=== PATIENT | female | born 1975 | race Caucasian/White ===

== ENCOUNTER 2017-09-15 03:13 | Inpatient (IN) | payer MEDICAID, OTHER ==
[2017-09-15 03:13] VITALS: BMI 57.4
--- NOTE | 2017-09-15 03:23 | C.PDOC ---
History Of Present Illness patient presents with about 3 hours of sudden onset of midepigastric and ruq pain, had nausea and 2 episodes of emesis. No f/c. Last had some meatballs with rice around 5 pm for dinner. No diarrhea Time Seen by Provider: 09/15/17 03:23 History Per: Patient History/Exam Limitations: no limitations Onset/Duration Of Symptoms: Hrs (3) Current Symptoms Are (Timing): Still Present Context: Other Severity: Moderate Pain Scale Rating Of: 4 Location Of Pain/Discomfort: RUQ, Epigastric Radiation Of Pain To:: Back Quality Of Discomfort: Sharp, Cramping Associated Symptoms: Nausea, Vomiting. denies: Fever, Chills Exacerbating Factors: None Alleviating Factors: None Last Bowel Movement: Yesterday Recent travel outside of the [place]: No Additional History Per: Patient Abnormal Vaginal Bleeding: No Past Medical History Reviewed: Historical Data, Nursing Documentation, Vital Signs Vital Signs: Last Vital Signs Temp 98.6 F 09/15/17 03:23 Pulse 66 09/15/17 03:23 Resp 18 09/15/17 03:23 BP 123/74 09/15/17 03:23 Pulse Ox 99 09/15/17 05:06 - Medical History PMH: Denies: Chronic Kidney Disease Family History: States: No Known Family Hx - Social History Hx Tobacco Use: Yes (3 cigarrettes per day) Hx Alcohol Use: No Hx Substance Use: No - Immunization History Hx Tetanus Toxoid Vaccination: No Hx Influenza Vaccination: Yes Hx Pneumococcal Vaccination: Yes Review Of Systems Constitutional: Negative for: Fever, Chills ENT: Negative for: Throat Pain Cardiovascular: Negative for: Chest Pain Respiratory: Negative for: Shortness of Breath Gastrointestinal: Positive for: Nausea, Vomiting, Abdominal Pain Musculoskeletal: Positive for: Back Pain Skin: Negative for: Rash Neurological: Negative for: Weakness Psych: Negative for: Anxiety Physical Exam - Physical Exam Appears: Non-toxic, No Acute Distress Skin: Warm, Dry Oral Mucosa: Moist Neck: Supple Chest: Symmetrical Cardiovascular: Rhythm Regular Respiratory: No Rales, No Rhonchi, No Wheezing Gastrointestinal/Abdominal: Soft, Tenderness (midepigastric and ruq), Distention (morbidly obese) Back: Normal Inspection Neurological/Psych: Oriented x3 Gait: Steady ED Course And Treatment - Laboratory Results Result Diagrams: 09/15/17 04:06 09/15/17 04:06 O2 Sat by Pulse Oximetry: 99 Pulse Ox Interpretation: Normal Disposition Counseled Patient/Family Regarding: Studies Performed, Diagnosis - Disposition Disposition Time: 03:23 Condition: FAIR - Clinical Impression Clinical Impression: Abdominal pain, Nausea, Vomiting, Gallstone Physician Patient Turnover Patient Signed Over To: Felix Ga Handoff Comments: pending labs, US and dispo
[2017-09-15] MEDS ORDERED: Sodium Chloride 0.9% 1,000 ML IV ONE (03:38)
[2017-09-15 04:09] LABS: EOS # 0.1 K/uL (0.0-0.7); EOS % 0.6 % (0.0-4.0); MONO # 0.4 K/uL (0.0-0.8)
[2017-09-15 04:13] LABS: BASO % 0.4 % (0.0-2.0); HEMOGLOBIN 8.8 g/dL (11.0-16.0); MEAN CELL VOLUME 61.5 fL (81.0-99.0); MEAN CORPUSCULAR HEMOGLOBIN 18.5 pg (27.0-31.0); MEAN CORPUSCULAR HGB CONC 30.1 g/dL (33.0-37.0); MEAN PLATELET VOLUME 7.3 fL (7.2-11.7); MONO % 3.6 % (0.0-10.0); NEUT # 7.7 K/uL (1.8-7.0); NEUT % 75.4 % (50.0-75.0); NRBC % 0.2 % (0.0-2.0); RBC 4.75 Mil/uL (3.80-5.20); RED CELL DISTRIBUTION WIDTH 19.4 % (11.5-14.5); WHITE BLOOD COUNT 10.2 K/uL (4.8-10.8)
[2017-09-15 04:15] LABS: PROTHROMBIN TIME 11.2 SECONDS (9.7-12.2)
[2017-09-15 04:20] LABS: ALB/GLOB RATIO 1.3 (1.0-2.1); ALT/SGPT 26 U/L (9-52); AST/SGOT 13 U/L (14-36); BLOOD UREA NITROGEN 13 mg/dL (7-17); CALCIUM 9.7 mg/dl (8.6-10.4); GFR AFRICAN-AMERICAN > 60; GFR NON-AFRICAN AMERICAN > 60; LIPASE 154 U/L (23-300)
[2017-09-15 04:31] LABS: SQUAMOUS EPITHIAL 11 /hpf (0-5); URINE BILIRUBIN NEGATIVE (NEGATIVE); URINE BLOOD NEGATIVE (NEGATIVE); URINE CLARITY Hazy (Clear); URINE COLOR Yellow (YELLOW); URINE GLUCOSE (UA) NORMAL (Normal); URINE LEUKOCYTE ESTERASE 1+ Leu/uL (Negative); URINE PROTEIN NEGATIVE (NEGATIVE); URINE UROBILINOGEN NORMAL mg/dL (0.2-1.0)
[2017-09-15 04:32] LABS: HCG,QUALITATIVE URINE NEGATIVE (NEGATIVE)
[2017-09-15] MEDS ORDERED: Piperacillin/Tazobact 3.375 gm 100 ML IVPB STA (04:32)
[2017-09-15] MEDS ORDERED: Morphine 4 MG/ML VIAL IV ONE (05:06)
[2017-09-15] MEDS ORDERED: Morphine 4 MG/ML VIAL ONE (05:10)
[2017-09-15] MEDS ORDERED: Iodixanol 320 MG/ML 100 ML BOTTLE IV ONE (05:20)
--- NOTE | 2017-09-15 07:32 | CT ---
Date of service: 09/15/2017 PROCEDURE: CT Abdomen and Pelvis with contrast HISTORY: mid epigastric pain COMPARISON: Comparison is made with the previous ultrasound of the abdomen dated 09/19/2015 TECHNIQUE: Contrast dose: 100 mL Visipaque 320. Axial and reformatted coronal and sagittal CT images of the abdomen and pelvis were obtained after IV contrast administration Radiation dose: Total exam DLP = 1228.84 mGy-cm. This CT exam was performed using one or more of the following dose reduction techniques: Automated exposure control, adjustment of the mA and/or kV according to patient size, and/or use of iterative reconstruction technique. FINDINGS: LOWER THORAX: Unremarkable. LIVER: Unremarkable. No gross lesion or ductal dilatation. GALLBLADDER AND BILE DUCTS: Cholelithiasis are noted without evidence of acute cholecystitis. PANCREAS: Unremarkable. No gross lesion or ductal dilatation. SPLEEN: Unremarkable. ADRENALS: Unremarkable. No mass. KIDNEYS AND URETERS: Unremarkable. No hydronephrosis. No solid mass. VASCULATURE: Unremarkable. No aortic aneurysm. BOWEL: Unremarkable. No obstruction. No gross mural thickening. . APPENDIX: There is no evidence of appendicitis PERITONEUM: Unremarkable. No free fluid. No free air. LYMPH NODES: Unremarkable. No enlarged lymph nodes. BLADDER: Unremarkable. REPRODUCTIVE: The uterus is mildly enlarged. There is soft tissue lesion at the left aspect of the uterine body and fundus likely represent large fibroid. Prominent follicles is also noted in the left adnexa. BONES: No acute fracture. OTHER FINDINGS: None. IMPRESSION: Cholelithiasis without CT evidence of acute cholecystitis. No evidence of pancreatitis or appendicitis. Enlarged uterus contains soft tissue enhancing lesion likely represent large fibroid. Preliminary report was submitted by [facility].
--- NOTE | 2017-09-15 09:30 | US ---
Date of service: 09/15/2017 HISTORY: uterine fibroid/mass COMPARISON: None available. TECHNIQUE: Transabdominal and transvaginal FINDINGS: UTERUS: Measures 15.4 x 10.3 x 10.4 cm. Anterior intramural/ subserosal uterine fibroid, 7.5 x 7.7 x 7.5 cm. ENDOMETRIUM: Measures 17 mm in diameter. Unremarkable. CERVIX: No cervical abnormality identified. RIGHT OVARY: Measures 3.8 x 2.0 x 3.9 cm. No solid mass. Normal flow. LEFT OVARY: Measures 4.5 x 3.6 x 4.8 cm. No solid mass. Normal flow. Simple cyst, 2.5 x 2.7 x 2.9 cm. FREE FLUID: No significant free fluid noted. OTHER FINDINGS: None. IMPRESSION: 2.9 cm simple left ovarian cyst, presumed physiologic. 7.7 cm anterior intramural/ subserosal uterine fibroid. No additional abnormality.
[2017-09-15 10:12] VITALS: RESP 20
[2017-09-15] MEDS ORDERED: Morphine 4 MG/ML VIAL IV PRN (11:57)
--- NOTE | 2017-09-15 13:46 | US ---
Date of service: 09/15/2017 HISTORY: gallstones COMPARISON: Correlations made to CT scan of the abdomen pelvis performed earlier the same day. TECHNIQUE: Sonographic evaluation of the right upper quadrant of the abdomen. FINDINGS: LIVER: Enlarged, measuring 18.2 cm in length. Increased echogenicity of the liver parenchyma. No mass. No intrahepatic bile duct dilatation. GALLBLADDER: Cholelithiasis with gallbladder wall thickening/edema. No pericholecystic fluid or elicited sonographic Moreno's sign. COMMON BILE DUCT: Mildly dilated, measuring 7 mm. PANCREAS: Limited evaluation. RIGHT KIDNEY: Measures 13.4 x 5.5 x 5.7 cm in length. Normal echogenicity. No calculus, mass, or hydronephrosis. AORTA: No aneurysmal dilatation. IVC: Unremarkable. OTHER FINDINGS: None . IMPRESSION: Hepatomegaly with steatosis. Cholelithiasis with nonspecific gallbladder wall thickening/ edema. Findings are equivocal for acute cholecystitis. Mildly dilated common bile duct for which choledocholithiasis cannot be excluded. MRCP can be obtained for further evaluation of the biliary ductal system as clinically warranted.
[2017-09-15] MEDS: Lactated Ringer's 1,000 ML IV SCH ×3 (14:12→21:00)
--- NOTE | 2017-09-15 15:23 | CP.PCM.HP ---
<Chelsea Mcclendon - Last Filed: 09/15/17 16:24> History of Present Illness - History of Present Illness History of Present Illness: cc: abdominal pain Ms. Mamie Cowart is a 42 year old female PMH anemia complaining of abdominal pain since last night. The sharp epigastric pain woke her from sleep. She thought it was a reoccurance of her GERD and laid in bed for another two hours while the pain increased from a 7 to 10/10. It radiates from the mid-epigastric region, around her right side, terminating at the right flank. The pain is constant and has not changed since being admitted. She admits to nausea, with two episodes of non bloody, non bilious vomiting prior to coming to [place]. She also admits to one episode of light diarrhea, yellow and water. She has been on a new diet for the last two months, consisting of and Herbalife shake in the morning, and a larger lunch at 4-5pm, skipping dinner. She has lost 10lbs in the last two months and hopes to continue losing weight. Admits to fatigue and continued nausea. Denies chest pain, difficulty breathing, shortness of breath, headaches, dizziness, lightheadedness, blurry vision, double vision, sweating, sore throat, palpitation, flushing, heat or cold intolerance, dysuria, recent travel, sick contacts, recent sickness, change in appetite. PMH: Fe def anemia PSxH: 2004 Home Meds: black seed oil Allergies: NKDA FamHx: unknown PSH: 3 cig/day smoker since age 15. Social alcohol drinker on weekends, 2 cocktails. Denies drugs. Lives with and two children in apartment. 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 Full Code Caleb Ga [phone] Present on Admission - Present on Admission Any Indicators Present on Admission: No Review of Systems - Constitutional Constitutional: Fatigue, Weight Loss. absent: Anorexia, Chills, Excessive Sweating, Fever, Headache, Increased Appetite, Malaise, Night Sweats, Weight Gain - EENT Eyes: absent: Blind Spots, Blurred Vision, Diplopia, Dry Eye Ears: absent: Decreased Hearing, Tinnitus, Dizziness Nose/Mouth/Throat: absent: Dry Mouth, Dysphagia, Halitosis, Hoarsness, Odynophagia, Sore Throat - Cardiovascular Cardiovascular: absent: Chest Pain, Chest Pain at Rest, Chest Pain with Activity , Dyspnea, Pain Radiating to Arm/Neck/Jaw, Leg Edema, Lightheadedness, Palpitations, Rapid Heart Rate - Respiratory Respiratory: absent: Cough, Dyspnea, Dyspnea on Exertion, Wheezing, Chest Congestion - Gastrointestinal Gastrointestinal: Abdominal Pain, Diarrhea, Heartburn, Nausea, Vomiting. absent : Belching, Bloating, Change in Stool Character, Constipation, Dysphagia, Fecal Incontinence, Odynophagia - Genitourinary Genitourinary: absent: Difficulty Urinating, Dysuria, Hematuria, Urinary Incontinence, Urinary Frequency - Musculoskeletal Musculoskeletal: absent: Abnormal Gait, Back Pain - Neurological Neurological: absent: Abnormal Gait, Syncope, Tremor, Vertigo - Psychiatric Psychiatric: absent: Confusion, Depression - Endocrine Endocrine: absent: Cold Intolorance, Excessive Sweating, Heat Intolorance, Palpitations - Hematologic/Lymphatic Hematologic: absent: Easy Bleeding, Easy Bruising Past Patient History - Past Medical History & Family History Past Medical History?: Yes - Past Social History Smoking Status: Current Some Days Smoker Alcohol: Social Drugs: Denies - CARDIAC Hx Cardiac Disorders: No - PULMONARY Hx Respiratory Disorders: Yes Other/Comment: SLEEP APNEA NO MACHINE - NEUROLOGICAL Hx Neurological Disorder: No - HEENT Hx HEENT Problems: No - RENAL Hx Chronic Kidney Disease: No - ENDOCRINE/METABOLIC Hx Endocrine Disorders: No - HEMATOLOGICAL/ONCOLOGICAL Hx Blood Disorders: Yes Hx Anemia: Yes Hx Blood Transfusions: Yes - INTEGUMENTARY Hx Dermatological Problems: No - MUSCULOSKELETAL/RHEUMATOLOGICAL Hx Falls: No - GASTROINTESTINAL Hx Gastrointestinal Disorders: No - GENITOURINARY/GYNECOLOGICAL Hx Genitourinary Disorders: No - PSYCHIATRIC Hx Psychophysiologic Disorder: No Hx Substance Use: No - SURGICAL HISTORY Hx Surgeries: Yes Hx Section: Yes - ANESTHESIA Hx Anesthesia: Yes Hx Anesthesia Reactions: No Meds Allergies/Adverse Reactions: Allergies Allergy/AdvReac Type Severity Reaction Status Date / Time No Known Allergies Allergy Verified 09/15/17 03:29 Physical Exam - Constitutional Appears: Non-toxic, No Acute Distress - Head Exam Head Exam: ATRAUMATIC, NORMOCEPHALIC - Eye Exam Eye Exam: EOMI, Normal appearance, PERRL. absent: Periorbital tenderness Additional comments: glasses - ENT Exam ENT Exam: Mucous Membranes Moist, Normal Exam - Respiratory Exam Respiratory Exam: Clear to Auscultation Bilateral, NORMAL BREATHING PATTERN. absent: Rales, Rhonchi, Wheezes - Cardiovascular Exam Cardiovascular Exam: REGULAR RHYTHM, +S1, +S2. absent: Gallop, Rubs, Systolic Murmur - GI/Abdominal Exam GI & Abdominal Exam: Normal Bowel Sounds, Soft, Tenderness. absent: Distended, Firm, Guarding, Rebound, Rigid Additional comments: obese tenderness to deep palpation midepigastric area through right side, around to the back. - Extremities Exam Extremities exam: Positive for: normal capillary refill, pedal pulses present. Negative for: joint swelling, pedal edema, tenderness Additional comments: IV in right arm, good flow - Back Exam Back exam: NORMAL INSPECTION - Neurological Exam Neurological exam: Alert, CN II-XII Intact, Normal Gait, Oriented x3, Reflexes Normal - Psychiatric Exam Psychiatric exam: Normal Affect, Normal Mood - Skin Skin Exam: Dry, Intact, Normal Color, Warm Results - Vital Signs Recent Vital Signs: Last Vital Signs Temp 98.6 F 09/15/17 10:11 Pulse 69 09/15/17 10:11 Resp 20 09/15/17 10:11 BP 102/66 09/15/17 10:11 Pulse Ox 97 09/15/17 10:11 - Labs Result Diagrams: 09/15/17 04:06 09/15/17 04:06 Labs: Laboratory Results - last 24 hr 09/15/17 09/15/17 09/15/17 04:06 04:06 04:06 WBC 10.2 RBC 4.75 Hgb 8.8 L Hct 29.2 L MCV 61.5 L D MCH 18.5 L MCHC 30.1 L RDW 19.4 H Plt Count 407 H MPV 7.3 Neut % (Auto) 75.4 H Lymph % (Auto) 20.0 [place] % (Auto) 3.6 Eos % (Auto) 0.6 Baso % (Auto) 0.4 Neut # (Auto) 7.7 H Lymph # (Auto) 2.0 [place] # (Auto) 0.4 Eos # (Auto) 0.1 Baso # (Auto) 0.0 PT 11.2 INR 1.0 APTT 32 Sodium 144 Potassium 4.5 Chloride 104 Carbon Dioxide 28 Anion Gap 16 BUN 13 Creatinine 0.7 Est GFR ( Amer) > 60 Est GFR (Non-Af Amer) > 60 Random Glucose 135 H Calcium 9.7 Total Bilirubin 0.4 AST 13 L ALT 26 Alkaline Phosphatase 88 Total Protein 7.2 Albumin 4.0 Globulin 3.2 Albumin/Globulin Ratio 1.3 Lipase 154 Urine Color Urine Clarity Urine pH Ur Specific Industry Urine Protein Urine Glucose (UA) Urine Ketones Urine Blood Urine Nitrate Urine Bilirubin Urine Urobilinogen Ur Leukocyte Esterase Urine WBC (Auto) Urine RBC (Auto) Ur Squamous Epith Cells Urine HCG, Qual Blood Type Antibody Screen 09/15/17 09/15/17 04:18 14:14 WBC RBC Hgb Hct MCV MCH MCHC RDW Plt Count MPV Neut % (Auto) Lymph % (Auto) [place] % (Auto) Eos % (Auto) Baso % (Auto) Neut # (Auto) Lymph # (Auto) [place] # (Auto) Eos # (Auto) Baso # (Auto) PT INR APTT Sodium Potassium Chloride Carbon Dioxide Anion Gap BUN Creatinine Est GFR ( Amer) Est GFR (Non-Af Amer) Random Glucose Calcium Total Bilirubin AST ALT Alkaline Phosphatase Total Protein Albumin Globulin Albumin/Globulin Ratio Lipase Urine Color Yellow Urine Clarity Hazy Urine pH 5.0 Ur Specific Industry 1.025 Urine Protein Negative Urine Glucose (UA) Normal Urine Ketones Negative Urine Blood Negative Urine Nitrate Negative Urine Bilirubin Negative Urine Urobilinogen Normal Ur Leukocyte Esterase 1+ H Urine WBC (Auto) 25 H Urine RBC (Auto) 2 Ur Squamous Epith Cells 11 H Urine HCG, Qual Negative Blood Type B POSITIVE Antibody Screen Negative Assessment & Plan (1) Abdominal pain Assessment and Plan: Cholelithiasis vs. Choledocholithiasis vs. Cholecystitis Abdominal/Pelvic CT (09/15) Cholelithiasis without evidence of acute cholecystitis. No evidence of pancreatitis or appendicitis Abdominal US (09/15) Cholelithiasis with non specific gallbladder wall thickening /edema - equivocal for acute cholecystitis. Mildly dilated CBD which choledocholithiasis cannot be excluded. Bowel rest, currently NPO IVF: LR @ 150mls/hr Tylenol and Morphine PRN for pain Repeat lipase: f/u Surgery consulted: Dr. Baird - help appreciated Status: Acute (2) Uterine fibroid Assessment and Plan: Abdominal/Pelvic CT (09/15) Enlarged uterus contains soft tissue enhancing lesion , likely large fibroid Transabdominal and Transvaginal US (09/15) 7.7cm anterior intramural/subserosal uterine fibroid. 2.9cm simple left ovarian cyst Patient is asymptomatic, may follow up outpatient Status: Chronic (3) History of iron deficiency anemia Assessment and Plan: H&H today 8.8, 29.2 patient is asymptomatic, trend with morning labs Status: Chronic (4) Tobacco abuse Assessment and Plan: Encouraged on smoking cessation Nicotine patch TD daily Status: Acute (5) Prophylactic measure Assessment and Plan: DVT: Lovenox 40mg sc daily GI: not indicated Diet: currently NPO, may start heart healthy if no surgery Status: Acute <Az Pearce H - Last Filed: 09/15/17 18:10> Results - Vital Signs Recent Vital Signs: Last Vital Signs Temp 98.2 F 09/15/17 15:15 Pulse 74 09/15/17 15:15 Resp 20 09/15/17 15:15 BP 101/62 09/15/17 15:15 Pulse Ox 97 09/15/17 15:15 - Labs Result Diagrams: 09/15/17 04:06 09/15/17 04:06 Labs: Laboratory Results - last 24 hr 09/15/17 09/15/17 09/15/17 04:06 04:06 04:06 WBC 10.2 RBC 4.75 Hgb 8.8 L Hct 29.2 L MCV 61.5 L D MCH 18.5 L MCHC 30.1 L RDW 19.4 H Plt Count 407 H MPV 7.3 Neut % (Auto) 75.4 H Lymph % (Auto) 20.0 [place] % (Auto) 3.6 Eos % (Auto) 0.6 Baso % (Auto) 0.4 Neut # (Auto) 7.7 H Lymph # (Auto) 2.0 [place] # (Auto) 0.4 Eos # (Auto) 0.1 Baso # (Auto) 0.0 PT 11.2 INR 1.0 APTT 32 Sodium 144 Potassium 4.5 Chloride 104 Carbon Dioxide 28 Anion Gap 16 BUN 13 Creatinine 0.7 Est GFR ( Amer) > 60 Est GFR (Non-Af Amer) > 60 Random Glucose 135 H Calcium 9.7 Total Bilirubin 0.4 AST 13 L ALT 26 Alkaline Phosphatase 88 Total Protein 7.2 Albumin 4.0 Globulin 3.2 Albumin/Globulin Ratio 1.3 Lipase 154 Urine Color Urine Clarity Urine pH Ur Specific Industry Urine Protein Urine Glucose (UA) Urine Ketones Urine Blood Urine Nitrate Urine Bilirubin Urine Urobilinogen Ur Leukocyte Esterase Urine WBC (Auto) Urine RBC (Auto) Ur Squamous Epith Cells Urine HCG, Qual Blood Type Blood Type Confirm Antibody Screen 09/15/17 09/15/17 04:18 14:14 WBC RBC Hgb Hct MCV MCH MCHC RDW Plt Count MPV Neut % (Auto) Lymph % (Auto) [place] % (Auto) Eos % (Auto) Baso % (Auto) Neut # (Auto) Lymph # (Auto) [place] # (Auto) Eos # (Auto) Baso # (Auto) PT INR APTT Sodium Potassium Chloride Carbon Dioxide Anion Gap BUN Creatinine Est GFR ( Amer) Est GFR (Non-Af Amer) Random Glucose Calcium Total Bilirubin AST ALT Alkaline Phosphatase Total Protein Albumin Globulin Albumin/Globulin Ratio Lipase Urine Color Yellow Urine Clarity Hazy Urine pH 5.0 Ur Specific Industry 1.025 Urine Protein Negative Urine Glucose (UA) Normal Urine Ketones Negative Urine Blood Negative Urine Nitrate Negative Urine Bilirubin Negative Urine Urobilinogen Normal Ur Leukocyte Esterase 1+ H Urine WBC (Auto) 25 H Urine RBC (Auto) 2 Ur Squamous Epith Cells 11 H Urine HCG, Qual Negative Blood Type B POSITIVE Blood Type Confirm B POSITIVE Antibody Screen Negative Attending/Attestation - Attestation I have personally seen and examined this patient.: Yes I have fully participated in the care of the patient.: Yes I have reviewed all pertinent clinical information: Yes Notes (Text): 09/15/17 18:10 Medical attending: Patient was seen and examined by me, I saw the patient together with the director medical economics. Reviewed the above note and agree with the above. When we saw the patient she was not in any acute distress. Family members were present in the room, the patient was okay with this. She has had a CT scan of the abdomen and pelvis done which showed that she appears to have at least gallstones. We ordered an additional ultrasound abdomen just assess for common bile duct dilatation. This being said her Liverman enzymes as well as lipase and T bilirubin are currently stable at this moment. That she has had right upper quadrant pain before in the past however not this severe For the time being will keep her nothing by mouth, we will get a surgical evaluation. Also recheck her LFTs as well as lipase tomorrow low dose pain medications well thank you very much, Az Pearce
--- NOTE | 2017-09-16 00:49 | CP.PCM.CON ---
<Deandre Cota - Last Filed: 09/16/17 09:10> History of Present Illness - History of Present Illness History of Present Illness: 42 y/o f patient presents for right upper quadrant and epigastric pain that began the previous night. She describes the pain as sharp in quality and radiating to her back. Patient comments that nothing makes the pain better or worse. Upon questioning patient denied fatigue, weakness, dizziness, chest pain , tachycardia, dyspnea, coughing, wheezing, sputum production, dysuria, pyuria, hematuria. Patient comments that she did experience nausea, vomiting, diarrhea but has not had a BM or flatus since the previous day. PMH: N/A PSH: (2003) FH: N/A Allergies NKDA Medicationa: N/A Review of Systems - Review of Systems Review of Systems: 12 pt ROS unremarkable except as stated in HPI - Constitutional Constitutional: As Per HPI Past Patient History - Past Medical History & Family History Past Medical History?: Yes - Past Social History Smoking Status: Current Some Days Smoker Alcohol: Social Drugs: Denies - CARDIAC Hx Cardiac Disorders: No - PULMONARY Hx Respiratory Disorders: Yes Other/Comment: SLEEP APNEA NO MACHINE - NEUROLOGICAL Hx Neurological Disorder: No - HEENT Hx HEENT Problems: No - RENAL Hx Chronic Kidney Disease: No - ENDOCRINE/METABOLIC Hx Endocrine Disorders: No - HEMATOLOGICAL/ONCOLOGICAL Hx Blood Disorders: Yes Hx Anemia: Yes Hx Blood Transfusions: Yes - INTEGUMENTARY Hx Dermatological Problems: No - MUSCULOSKELETAL/RHEUMATOLOGICAL Hx Falls: No - GASTROINTESTINAL Hx Gastrointestinal Disorders: No - GENITOURINARY/GYNECOLOGICAL Hx Genitourinary Disorders: No - PSYCHIATRIC Hx Psychophysiologic Disorder: No Hx Substance Use: No - SURGICAL HISTORY Hx Surgeries: Yes Hx Section: Yes - ANESTHESIA Hx Anesthesia: Yes Hx Anesthesia Reactions: No Meds Allergies/Adverse Reactions: Allergies Allergy/AdvReac Type Severity Reaction Status Date / Time No Known Allergies Allergy Verified 09/15/17 03:29 - Medications Medications: Current Medications Acetaminophen (Tylenol 325mg Tab) 650 mg PO Q6 PRN PRN Reason: Pain, Mild (1-3) Lactated Ringer's (Lactated Ringer's) 1,000 mls @ 150 mls/hr IV .[facility]6H40M [facility] Last Admin: 09/15/17 21:00 Dose: 150 mls/hr Morphine Sulfate (Morphine) 4 mg IV Q6 PRN PRN Reason: Pain, moderate (4-7) Nicotine (Nicoderm Cq) 1 patch TD DAILY [facility] Last Admin: 09/15/17 14:12 Dose: 1 patch Physical Exam - Constitutional Appears: Well - Head Exam Head Exam: ATRAUMATIC - Respiratory Exam Respiratory Exam: NORMAL BREATHING PATTERN - GI/Abdominal Exam GI & Abdominal Exam: Soft, Tenderness Additional comments: + RUQ tenderness, mild - Neurological Exam Neurological exam: Alert, Oriented x3 - Psychiatric Exam Psychiatric exam: Normal Mood - Skin Skin Exam: Dry, Intact, Warm Results - Vital Signs Recent Vital Signs: Last Vital Signs Temp 97.9 F 09/16/17 00:31 Pulse 68 09/16/17 00:31 Resp 20 09/16/17 00:31 BP 115/75 09/16/17 00:31 Pulse Ox 100 09/16/17 00:31 - Labs Result Diagrams: 09/16/17 06:14 09/16/17 06:14 Labs: Laboratory Results - last 24 hr 09/15/17 09/15/17 09/15/17 04:06 04:06 04:06 WBC 10.2 RBC 4.75 Hgb 8.8 L Hct 29.2 L MCV 61.5 L D MCH 18.5 L MCHC 30.1 L RDW 19.4 H Plt Count 407 H MPV 7.3 Neut % (Auto) 75.4 H Lymph % (Auto) 20.0 [place] % (Auto) 3.6 Eos % (Auto) 0.6 Baso % (Auto) 0.4 Neut # (Auto) 7.7 H Lymph # (Auto) 2.0 [place] # (Auto) 0.4 Eos # (Auto) 0.1 Baso # (Auto) 0.0 PT 11.2 INR 1.0 APTT 32 Sodium 144 Potassium 4.5 Chloride 104 Carbon Dioxide 28 Anion Gap 16 BUN 13 Creatinine 0.7 Est GFR ( Amer) > 60 Est GFR (Non-Af Amer) > 60 Random Glucose 135 H Calcium 9.7 Total Bilirubin 0.4 AST 13 L ALT 26 Alkaline Phosphatase 88 Total Protein 7.2 Albumin 4.0 Globulin 3.2 Albumin/Globulin Ratio 1.3 Lipase 154 Urine Color Urine Clarity Urine pH Ur Specific [place] Urine Protein Urine Glucose (UA) Urine Ketones Urine Blood Urine Nitrate Urine Bilirubin Urine Urobilinogen Ur Leukocyte Esterase Urine WBC (Auto) Urine RBC (Auto) Ur Squamous Epith Cells Urine HCG, Qual Blood Type Blood Type Confirm Antibody Screen 09/15/17 09/15/17 04:18 14:14 WBC RBC Hgb Hct MCV MCH MCHC RDW Plt Count MPV Neut % (Auto) Lymph % (Auto) [place] % (Auto) Eos % (Auto) Baso % (Auto) Neut # (Auto) Lymph # (Auto) [place] # (Auto) Eos # (Auto) Baso # (Auto) PT INR APTT Sodium Potassium Chloride Carbon Dioxide Anion Gap BUN Creatinine Est GFR ( Amer) Est GFR (Non-Af Amer) Random Glucose Calcium Total Bilirubin AST ALT Alkaline Phosphatase Total Protein Albumin Globulin Albumin/Globulin Ratio Lipase Urine Color Yellow Urine Clarity Hazy Urine pH 5.0 Ur Specific [place] 1.025 Urine Protein Negative Urine Glucose (UA) Normal Urine Ketones Negative Urine Blood Negative Urine Nitrate Negative Urine Bilirubin Negative Urine Urobilinogen Normal Ur Leukocyte Esterase 1+ H Urine WBC (Auto) 25 H Urine RBC (Auto) 2 Ur Squamous Epith Cells 11 H Urine HCG, Qual Negative Blood Type B POSITIVE Blood Type Confirm B POSITIVE Antibody Screen Negative Assessment & Plan - Assessment and Plan (Free Text) Assessment: 42 y/o F patient with symptomatic cholelithiasis Plan: Patient may follow up as outpatient for laparoscopic/robotic cholecystectomy Adv diet as tolerated IVF Analgesics/antiemetics SCDs D/w Dr. Brie Bermudez PGY3 <Giancarlo Baird - Last Filed: 09/16/17 14:54> Results - Vital Signs Recent Vital Signs: Last Vital Signs Temp 98.5 F 09/16/17 08:00 Pulse 69 09/16/17 08:00 Resp 20 09/16/17 08:00 BP 141/81 09/16/17 08:00 Pulse Ox 98 09/16/17 08:00 - Labs Result Diagrams: 09/16/17 06:14 09/16/17 06:14 Labs: Laboratory Results - last 24 hr 09/15/17 09/16/17 09/16/17 14:14 06:14 06:14 WBC 7.7 RBC 4.41 Hgb 8.1 L Hct 27.2 L MCV 61.7 L MCH 18.3 L MCHC 29.7 L RDW 19.1 H Plt Count 346 MPV 7.1 L Neut % (Auto) 58.6 Lymph % (Auto) 35.8 [place] % (Auto) 3.9 Eos % (Auto) 1.1 Baso % (Auto) 0.6 Neut # (Auto) 4.5 Lymph # (Auto) 2.8 [place] # (Auto) 0.3 Eos # (Auto) 0.1 Baso # (Auto) 0.0 Sodium Potassium Chloride Carbon Dioxide Anion Gap BUN Creatinine Est GFR ( Amer) Est GFR (Non-Af Amer) Random Glucose Hemoglobin A1c 5.7 Calcium Phosphorus Magnesium Total Bilirubin AST ALT Alkaline Phosphatase Total Protein Albumin Globulin Albumin/Globulin Ratio Lipase Blood Type B POSITIVE Blood Type Confirm B POSITIVE Antibody Screen Negative 09/16/17 06:14 WBC RBC Hgb Hct MCV MCH MCHC RDW Plt Count MPV Neut % (Auto) Lymph % (Auto) [place] % (Auto) Eos % (Auto) Baso % (Auto) Neut # (Auto) Lymph # (Auto) [place] # (Auto) Eos # (Auto) Baso # (Auto) Sodium 140 Potassium 3.7 Chloride 105 Carbon Dioxide 27 Anion Gap 12 BUN 7 Creatinine 0.7 Est GFR ( Amer) > 60 Est GFR (Non-Af Amer) > 60 Random Glucose 82 Hemoglobin A1c Calcium 8.6 Phosphorus 3.9 Magnesium 1.7 Total Bilirubin 0.3 AST 18 ALT 24 Alkaline Phosphatase 87 Total Protein 6.2 L Albumin 3.3 L Globulin 2.9 Albumin/Globulin Ratio 1.2 Lipase 188 Blood Type Blood Type Confirm Antibody Screen Attending/Attestation - Attestation I have personally seen and examined this patient.: Yes I have fully participated in the care of the patient.: Yes I have reviewed all pertinent clinical information: Yes Notes (Text): Pt was seen and examined at bedside Agree with above note and assessment Pt with upper abdominal pain and nausea Abdomen: Soft, mild tender. Non distended Labs and radiology reviewed Ass: Cholelithiasis with Morbid Obesity Plan: Conservative management for now IV antibiotics If pt improves, pt can be DC home Plan d.w pt in detail Risk and benefit explained in detail.
[2017-09-16] MEDS: Lactated Ringer's 1,000 ML IV SCH ×2 (03:27→08:50)
[2017-09-16 06:20] LABS: BASO % 0.6 % (0.0-2.0); EOS # 0.1 K/uL (0.0-0.7); EOS % 1.1 % (0.0-4.0); HEMOGLOBIN 8.1 g/dL (11.0-16.0); LYMPH # 2.8 K/uL (1.0-4.3); LYMPH % 35.8 % (20.0-40.0); MEAN CELL VOLUME 61.7 fL (81.0-99.0); MEAN CORPUSCULAR HEMOGLOBIN 18.3 pg (27.0-31.0); MEAN CORPUSCULAR HGB CONC 29.7 g/dL (33.0-37.0); MEAN PLATELET VOLUME 7.1 fL (7.2-11.7); MONO # 0.3 K/uL (0.0-0.8); MONO % 3.9 % (0.0-10.0); NEUT # 4.5 K/uL (1.8-7.0); NEUT % 58.6 % (50.0-75.0); NRBC % 0.1 % (0.0-2.0); RBC 4.41 Mil/uL (3.80-5.20); RED CELL DISTRIBUTION WIDTH 19.1 % (11.5-14.5); WHITE BLOOD COUNT 7.7 K/uL (4.8-10.8)
--- NOTE | 2017-09-16 06:24 | CP.PCM.PN ---
Subjective - Date & Time of Evaluation Date of Evaluation: 09/16/17 Objective - Vital Signs/Intake and Output Vital Signs (last 24 hours): Temp Pulse Resp BP Pulse Ox 97.9 F 68 20 115/75 100 09/16/17 00:31 09/16/17 00:31 09/16/17 00:31 09/16/17 00:31 09/16/17 00:31 Intake and Output: 09/15/17 09/16/17 18:59 06:59 Intake Total 1200 Balance 1200 - Medications Medications: Current Medications Acetaminophen (Tylenol 325mg Tab) 650 mg PO Q6 PRN PRN Reason: Pain, Mild (1-3) Lactated Ringer's (Lactated Ringer's) 1,000 mls @ 150 mls/hr IV .Q6H40M [facility] Last Admin: 09/16/17 03:27 Dose: 150 mls/hr Morphine Sulfate (Morphine) 4 mg IV Q6 PRN PRN Reason: Pain, moderate (4-7) Nicotine (Nicoderm Cq) 1 patch TD DAILY [facility] Last Admin: 09/15/17 14:12 Dose: 1 patch - Labs Labs: 09/15/17 04:06 09/15/17 04:06 PT 11.2 SECONDS (9.7-12.2) 09/15/17 04:06 INR 1.0 09/15/17 04:06 APTT 32 SECONDS (21-34) 09/15/17 04:06 Assessment and Plan (1) Abdominal pain Status: Acute (2) Uterine fibroid Status: Chronic (3) History of iron deficiency anemia Status: Chronic (4) Tobacco abuse Status: Acute (5) Prophylactic measure Status: Acute
[2017-09-16 08:08] LABS: ALB/GLOB RATIO 1.2 (1.0-2.1); ALBUMIN 3.3 g/dL (3.5-5.0); ALT/SGPT 24 U/L (9-52); AST/SGOT 18 U/L (14-36); BLOOD UREA NITROGEN 7 mg/dL (7-17); CALCIUM 8.6 mg/dl (8.6-10.4); GFR AFRICAN-AMERICAN > 60; GFR NON-AFRICAN AMERICAN > 60; LIPASE 188 U/L (23-300)
[2017-09-16 08:34] VITALS: BP 141/81; PULSE 69; TEMP 98.5; O2SAT 98
--- NOTE | 2017-09-16 09:42 | CP.PCM.PN ---
<Oneil Trejo - Last Filed: 09/16/17 09:43> Subjective - Date & Time of Evaluation Date of Evaluation: 09/16/17 Time of Evaluation: 09:41 - Subjective Subjective: Surgery: Dr. Baird Pt is clear for D/C from surgical standpoint Pt may follow up out pt for elective jo Low fat diet ok D/W attending Maya PGY4 Objective - Vital Signs/Intake and Output Vital Signs (last 24 hours): Temp Pulse Resp BP Pulse Ox 98.5 F 69 20 141/81 98 09/16/17 08:00 09/16/17 08:00 09/16/17 08:00 09/16/17 08:00 09/16/17 08:00 Intake and Output: 09/16/17 09/16/17 06:59 18:59 Intake Total 1200 Balance 1200 - Medications Medications: Current Medications Acetaminophen (Tylenol 325mg Tab) 650 mg PO Q6 PRN PRN Reason: Pain, Mild (1-3) Lactated Ringer's (Lactated Ringer's) 1,000 mls @ 150 mls/hr IV .Q6H40M [facility] Last Admin: 09/16/17 08:50 Dose: Not Given Morphine Sulfate (Morphine) 4 mg IV Q6 PRN PRN Reason: Pain, moderate (4-7) Nicotine (Nicoderm Cq) 1 patch TD DAILY [facility] Last Admin: 09/15/17 14:12 Dose: 1 patch - Labs Labs: 09/16/17 06:14 09/16/17 06:14 PT 11.2 SECONDS (9.7-12.2) 09/15/17 04:06 INR 1.0 09/15/17 04:06 APTT 32 SECONDS (21-34) 09/15/17 04:06 <Giancarlo Baird - Last Filed: 09/16/17 14:58> Objective - Vital Signs/Intake and Output Vital Signs (last 24 hours): Temp Pulse Resp BP Pulse Ox 98.5 F 69 20 141/81 98 09/16/17 08:00 09/16/17 08:00 09/16/17 08:00 09/16/17 08:00 09/16/17 08:00 Intake and Output: 09/16/17 09/16/17 06:59 18:59 Intake Total 1200 1550 Balance 1200 1550 - Labs Labs: 09/16/17 06:14 09/16/17 06:14 PT 11.2 SECONDS (9.7-12.2) 09/15/17 04:06 INR 1.0 09/15/17 04:06 APTT 32 SECONDS (21-34) 09/15/17 04:06 Attending/Attestation - Attestation I have personally seen and examined this patient.: Yes I have fully participated in the care of the patient.: Yes I have reviewed all pertinent clinical information, including history, physical exam and plan: Yes Notes (Text): Pt was seen and examined at bedside Agree with above note and assessment Pt is improved clinically Out pt lap Cholecystectomy Reg low fat diet c.w current mx Plan d.w pt in detail Risk and benefit explained in detail.
[2017-09-16] MEDS ORDERED: Enoxaparin 40 mg Syringe SC SCH (10:00)
--- NOTE | 2017-09-16 10:03 | CP.PCM.DIS ---
<Chelsea Mcclendon - Last Filed: 09/16/17 10:00> Provider - Provider Date of Admission: 09/15/17 07:35 Attending physician: Az Pearce DO Time Spent in preparation of Discharge (in minutes): 60 Diagnosis - Discharge Diagnosis (1) Abdominal pain Status: Acute (2) Uterine fibroid Status: Chronic (3) History of iron deficiency anemia Status: Chronic (4) Tobacco abuse Status: Acute (5) Prophylactic measure Status: Acute Hospital Course - Lab Results Lab Results: Most Recent Lab Values WBC 7.7 K/uL (4.8-10.8) 09/16/17 06:14 RBC 4.41 Mil/uL (3.80-5.20) 09/16/17 06:14 Hgb 8.1 g/dL (11.0-16.0) L 09/16/17 06:14 Hct 27.2 % (34.0-47.0) L 09/16/17 06:14 MCV 61.7 fL (81.0-99.0) L 09/16/17 06:14 MCH 18.3 pg (27.0-31.0) L 09/16/17 06:14 MCHC 29.7 g/dL (33.0-37.0) L 09/16/17 06:14 RDW 19.1 % (11.5-14.5) H 09/16/17 06:14 Plt Count 346 K/uL (130-400) 09/16/17 06:14 MPV 7.1 fL (7.2-11.7) L 09/16/17 06:14 Neut % (Auto) 58.6 % (50.0-75.0) 09/16/17 06:14 Lymph % (Auto) 35.8 % (20.0-40.0) 09/16/17 06:14 [place] % (Auto) 3.9 % (0.0-10.0) 09/16/17 06:14 Eos % (Auto) 1.1 % (0.0-4.0) 09/16/17 06:14 Baso % (Auto) 0.6 % (0.0-2.0) 09/16/17 06:14 Neut # (Auto) 4.5 K/uL (1.8-7.0) 09/16/17 06:14 Lymph # (Auto) 2.8 K/uL (1.0-4.3) 09/16/17 06:14 [place] # (Auto) 0.3 K/uL (0.0-0.8) 09/16/17 06:14 Eos # (Auto) 0.1 K/uL (0.0-0.7) 09/16/17 06:14 Baso # (Auto) 0.0 K/uL (0.0-0.2) 09/16/17 06:14 PT 11.2 SECONDS (9.7-12.2) 09/15/17 04:06 INR 1.0 09/15/17 04:06 APTT 32 SECONDS (21-34) 09/15/17 04:06 Sodium 140 mmol/L (132-148) 09/16/17 06:14 Potassium 3.7 mmol/L (3.6-5.2) 09/16/17 06:14 Chloride 105 mmol/L (98-107) 09/16/17 06:14 Carbon Dioxide 27 mmol/L (22-30) 09/16/17 06:14 Anion Gap 12 (10-20) 09/16/17 06:14 BUN 7 mg/dL (7-17) 09/16/17 06:14 Creatinine 0.7 mg/dL (0.7-1.2) 09/16/17 06:14 Est GFR ( Amer) > 60 09/16/17 06:14 Est GFR (Non-Af Amer) > 60 09/16/17 06:14 Random Glucose 82 mg/dL (65-105) 09/16/17 06:14 Hemoglobin A1c 5.7 % (4.2-6.5) 09/16/17 06:14 Calcium 8.6 mg/dl (8.6-10.4) 09/16/17 06:14 Phosphorus 3.9 mg/dL (2.5-4.5) 09/16/17 06:14 Magnesium 1.7 mg/dL (1.6-2.3) 09/16/17 06:14 Total Bilirubin 0.3 mg/dL (0.2-1.3) 09/16/17 06:14 AST 18 U/L (14-36) 09/16/17 06:14 ALT 24 U/L (9-52) 09/16/17 06:14 Alkaline Phosphatase 87 U/L (38-126) 09/16/17 06:14 Total Protein 6.2 g/dL (6.3-8.3) L 09/16/17 06:14 Albumin 3.3 g/dL (3.5-5.0) L 09/16/17 06:14 Globulin 2.9 gm/dL (2.2-3.9) 09/16/17 06:14 Albumin/Globulin Ratio 1.2 (1.0-2.1) 09/16/17 06:14 Lipase 188 U/L (23-300) 09/16/17 06:14 Urine Color Yellow (YELLOW) 09/15/17 04:18 Urine Clarity Hazy (Clear) 09/15/17 04:18 Urine pH 5.0 (5.0-8.0) 09/15/17 04:18 Ur Specific [place] 1.025 (1.003-1.030) 09/15/17 04:18 Urine Protein Negative mg/dL (NEGATIVE) 09/15/17 04:18 Urine Glucose (UA) Normal mg/dL (Normal) 09/15/17 04:18 Urine Ketones Negative mg/dL (NEGATIVE) 09/15/17 04:18 Urine Blood Negative (NEGATIVE) 09/15/17 04:18 Urine Nitrate Negative (NEGATIVE) 09/15/17 04:18 Urine Bilirubin Negative (NEGATIVE) 09/15/17 04:18 Urine Urobilinogen Normal mg/dL (0.2-1.0) 09/15/17 04:18 Ur Leukocyte Esterase 1+ [place]yll[place]/uL (Negative) H 09/15/17 04:18 Urine WBC (Auto) 25 /hpf (0-5) H 09/15/17 04:18 Urine RBC (Auto) 2 /hpf (0-3) 09/15/17 04:18 Ur Squamous Epith Cells 11 /hpf (0-5) H 09/15/17 04:18 Urine HCG, Qual Negative (NEGATIVE) 09/15/17 04:18 Blood Type B POSITIVE 09/15/17 14:14 Blood Type Confirm B POSITIVE 09/15/17 14:14 Antibody Screen Negative 09/15/17 14:14 - Hospital Course Hospital Course: Ms. Mamie Cowart is a 42 year old female PMH anemia complaining of abdominal pain since last night. The sharp epigastric pain woke her from sleep. She thought it was a reoccurance of her GERD and laid in bed for another two hours while the pain increased from a 7 to 10/10. It radiates from the mid-epigastric region, around her right side, terminating at the right flank. The pain is constant and has not changed since being admitted. She admits to nausea, with two episodes of non bloody, non bilious vomiting prior to coming to [place]. She also admits to one episode of light diarrhea, yellow and water. She has been on a new diet for the last two months, consisting of and Herbalife shake in the morning, and a larger lunch at 4-5pm, skipping dinner. She has lost 10lbs in the last two months and hopes to continue losing weight. Admits to fatigue and continued nausea. Denies chest pain, difficulty breathing, shortness of breath, headaches, dizziness, lightheadedness, blurry vision, double vision, sweating, sore throat, palpitation, flushing, heat or cold intolerance, dysuria, recent travel, sick contacts, recent sickness, change in appetite. CT Abdomen and Pelvis showed cholelithiasis without evidence of acute cholecystitis, enlarged uterus containing a soft tissue enhancing lesion. Transvaginal and transabdominal US confirmed 7.7cm anterior intramural/ subserosal uterine fibroid. It also showed a 2.9cm simple cyst on the left ovary. An abdominal US showed cholelithiasis with nonspecific gallbladder wall thickening/edema with equivocal results for choledocholithiasis. IVF and analgesics were given and the pain resolved. Labs showed no elevation in appropriate markers suggesting other etiologies or worsening of cholelithiasis. Primary Diagnosis: Cholelithiasis with biliary colic Patient is clear for discharge per Dr. Pearce. Patient had no home medications, and is not being discharged with any new medications. Please follow up with your PMD for your history of anemia. Please follow up with surgery for an elective cholecystectomy. A low fat diet is suggested, as well as exercise and weight loss, to decrease recurrence. Patient was also educated on smoking cessation. Plan was discussed with patient who understood and agreed. This is a summary of the hospital course. Please refer to the EMR for more details. - Date & Time of H&P Date of H&P: 09/16/17 Time of H&P: 10:01 Discharge Exam - Head Exam Head Exam: ATRAUMATIC, NORMOCEPHALIC - Eye Exam Eye Exam: EOMI, Normal appearance, PERRL - ENT Exam ENT Exam: Mucous Membranes Moist, Normal Exam - Respiratory Exam Respiratory Exam: Clear to PA & Lateral, UNREMARKABLE. absent: Rales, Rhonchi, Wheezes - Cardiovascular Exam Cardiovascular Exam: REGULAR RHYTHM, +S1, +S2. absent: Gallop, Rubs, Systolic Murmur - GI/Abdominal Exam GI & Abdominal Exam: Normal Bowel Sounds, Soft. absent: Firm, Guarding, Rebound , Tenderness Additional comments: obese - Extremities Exam Extremities exam: full ROM, normal capillary refill, pedal pulses present - Neurological Exam Neurological exam: Alert, CN II-XII Intact, Oriented x3, Reflexes Normal - Psychiatric Exam Psychiatric exam: Normal Affect, Normal Mood - Skin Skin Exam: Dry, Intact, Normal Color, Warm Discharge Plan - Follow Up Plan Disposition: HOME/ ROUTINE Instructions: Gallstones Additional Instructions: Patient is clear for discharge per Dr. Pearce. Patient had no home medications, and is not being discharged with any new medications. Please follow up with your PMD for your history of anemia. Please follow up with surgery for an elective cholecystectomy. A low fat diet is suggested, as well as exercise and weight loss, to decrease recurrence. Patient was also educated on smoking cessation. Plan was discussed with patient who understood and agreed. Referrals: Sheba Fink MD [Staff Provider] - <Az Pearce - Last Filed: 09/16/17 16:33> Provider - Provider Date of Admission: 09/15/17 07:35 Attending physician: Az Pearce, Hospital Course - Lab Results Lab Results: Most Recent Lab Values WBC 7.7 K/uL (4.8-10.8) 09/16/17 06:14 RBC 4.41 Mil/uL (3.80-5.20) 09/16/17 06:14 Hgb 8.1 g/dL (11.0-16.0) L 09/16/17 06:14 Hct 27.2 % (34.0-47.0) L 09/16/17 06:14 MCV 61.7 fL (81.0-99.0) L 09/16/17 06:14 MCH 18.3 pg (27.0-31.0) L 09/16/17 06:14 MCHC 29.7 g/dL (33.0-37.0) L 09/16/17 06:14 RDW 19.1 % (11.5-14.5) H 09/16/17 06:14 Plt Count 346 K/uL (130-400) 09/16/17 06:14 MPV 7.1 fL (7.2-11.7) L 09/16/17 06:14 Neut % (Auto) 58.6 % (50.0-75.0) 09/16/17 06:14 Lymph % (Auto) 35.8 % (20.0-40.0) 09/16/17 06:14 [place] % (Auto) 3.9 % (0.0-10.0) 09/16/17 06:14 Eos % (Auto) 1.1 % (0.0-4.0) 09/16/17 06:14 Baso % (Auto) 0.6 % (0.0-2.0) 09/16/17 06:14 Neut # (Auto) 4.5 K/uL (1.8-7.0) 09/16/17 06:14 Lymph # (Auto) 2.8 K/uL (1.0-4.3) 09/16/17 06:14 [place] # (Auto) 0.3 K/uL (0.0-0.8) 09/16/17 06:14 Eos # (Auto) 0.1 K/uL (0.0-0.7) 09/16/17 06:14 Baso # (Auto) 0.0 K/uL (0.0-0.2) 09/16/17 06:14 PT 11.2 SECONDS (9.7-12.2) 09/15/17 04:06 INR 1.0 09/15/17 04:06 APTT 32 SECONDS (21-34) 09/15/17 04:06 Sodium 140 mmol/L (132-148) 09/16/17 06:14 Potassium 3.7 mmol/L (3.6-5.2) 09/16/17 06:14 Chloride 105 mmol/L (98-107) 09/16/17 06:14 Carbon Dioxide 27 mmol/L (22-30) 09/16/17 06:14 Anion Gap 12 (10-20) 09/16/17 06:14 BUN 7 mg/dL (7-17) 09/16/17 06:14 Creatinine 0.7 mg/dL (0.7-1.2) 09/16/17 06:14 Est GFR ( Amer) > 60 09/16/17 06:14 Est GFR (Non-Af Amer) > 60 09/16/17 06:14 Random Glucose 82 mg/dL (65-105) 09/16/17 06:14 Hemoglobin A1c 5.7 % (4.2-6.5) 09/16/17 06:14 Calcium 8.6 mg/dl (8.6-10.4) 09/16/17 06:14 Phosphorus 3.9 mg/dL (2.5-4.5) 09/16/17 06:14 Magnesium 1.7 mg/dL (1.6-2.3) 09/16/17 06:14 Total Bilirubin 0.3 mg/dL (0.2-1.3) 09/16/17 06:14 AST 18 U/L (14-36) 09/16/17 06:14 ALT 24 U/L (9-52) 09/16/17 06:14 Alkaline Phosphatase 87 U/L (38-126) 09/16/17 06:14 Total Protein 6.2 g/dL (6.3-8.3) L 09/16/17 06:14 Albumin 3.3 g/dL (3.5-5.0) L 09/16/17 06:14 Globulin 2.9 gm/dL (2.2-3.9) 09/16/17 06:14 Albumin/Globulin Ratio 1.2 (1.0-2.1) 09/16/17 06:14 Lipase 188 U/L (23-300) 09/16/17 06:14 Urine Color Yellow (YELLOW) 09/15/17 04:18 Urine Clarity Hazy (Clear) 09/15/17 04:18 Urine pH 5.0 (5.0-8.0) 09/15/17 04:18 Ur Specific [place] 1.025 (1.003-1.030) 09/15/17 04:18 Urine Protein Negative mg/dL (NEGATIVE) 09/15/17 04:18 Urine Glucose (UA) Normal mg/dL (Normal) 09/15/17 04:18 Urine Ketones Negative mg/dL (NEGATIVE) 09/15/17 04:18 Urine Blood Negative (NEGATIVE) 09/15/17 04:18 Urine Nitrate Negative (NEGATIVE) 09/15/17 04:18 Urine Bilirubin Negative (NEGATIVE) 09/15/17 04:18 Urine Urobilinogen Normal mg/dL (0.2-1.0) 09/15/17 04:18 Ur Leukocyte Esterase 1+ [place]yll[place]/uL (Negative) H 09/15/17 04:18 Urine WBC (Auto) 25 /hpf (0-5) H 09/15/17 04:18 Urine RBC (Auto) 2 /hpf (0-3) 09/15/17 04:18 Ur Squamous Epith Cells 11 /hpf (0-5) H 09/15/17 04:18 Urine HCG, Qual Negative (NEGATIVE) 09/15/17 04:18 Blood Type B POSITIVE 09/15/17 14:14 Blood Type Confirm B POSITIVE 09/15/17 14:14 Antibody Screen Negative 09/15/17 14:14 Attending/Attestation - Attestation I have personally seen and examined this patient.: Yes I have fully participated in the care of the patient.: Yes I have reviewed all pertinent clinical information, including history, physical exam and plan: Yes Notes (Text): 09/16/17 16:31 Medical attending: Patient was seen and examined by me as well. Patient was seen and examined together with the medical radiation tech Patient was not in any acute pain or distress when we saw her. She reported doing well overnight The LFT remained stable overnight as well Will discharge today, we explained to her that should she have re-occuring problems with her gall bladder then in the future may need removal. Also encouraged diet, life style changes, etc thank you Az Pearce
== END 2017-09-16 14:12 | disposition home or self-care (01) | DRG 208 ==
LOC: C.ER 03:13 → C.3T 07:35
PROVIDERS: ADMIT Hospitalist; ATTEND Hospitalist
DX: K80.20 Calculus of gallbladder without cholecystitis without obstruction (principal); D25.2 Subserosal leiomyoma of uterus; D25.1 Intramural leiomyoma of uterus; N83.292 Other ovarian cyst, left side; K21.9 Gastro-esophageal reflux disease without esophagitis; F17.200 Nicotine dependence, unspecified, uncomplicated; E66.01 Morbid (severe) obesity due to excess calories; G47.30 Sleep apnea, unspecified; Z68.43 Body mass index [BMI] 50.0-59.9, adult; Z98.891 History of uterine scar from previous surgery

== ENCOUNTER 2017-10-14 14:14 | Inpatient (IN) | payer MEDICAID, OTHER ==
[2017-10-14 14:14] VITALS: BMI 57.4
[2017-10-14] MEDS ORDERED: Sodium Chloride 0.9% 1,000 ML IV ONE (14:55)
--- NOTE | 2017-10-14 14:59 | C.PDOC ---
History Of Present Illness 42 year old female patient presents to the ER with c/o RUQ abdominal pain. Associated sx includes nausea, vomiting and chills. Patient also c/o decreased appetite and no BM. Patient states her RUQ pain is so severe she is unable to eat or have a BM. Patient notes she was recently diagnosed with fever and diarrhea. Her LNMP was x1 month ago. Patient denies fever and diarrhea. Chief Complaint (Nursing): Back Pain History Per: Patient History/Exam Limitations: no limitations Past Medical History Reviewed: Historical Data, Nursing Documentation, Vital Signs Vital Signs: Last Vital Signs Temp 98.7 F 10/17/17 07:21 Pulse 76 10/17/17 07:21 Resp 20 10/17/17 07:21 BP 100/60 10/17/17 07:21 Pulse Ox 96 10/17/17 07:21 - Medical History PMH: Anemia, Gall Bladder Disease Family History: States: No Known Family Hx - Social History Hx Tobacco Use: Yes (3 cigarrettes per day) Hx Alcohol Use: Yes (social) Hx Substance Use: No - Immunization History Hx Tetanus Toxoid Vaccination: No Hx Influenza Vaccination: Yes Hx Pneumococcal Vaccination: Yes Review Of Systems Except As Marked, All Systems Reviewed And Found Negative. Constitutional: Positive for: Chills. Negative for: Fever Gastrointestinal: Positive for: Nausea, Vomiting, Abdominal Pain (RUQ). Negative for: Diarrhea Physical Exam - Physical Exam Appears: Non-toxic, No Acute Distress Skin: Normal Color, Warm, Dry Head: Atraumatic, Normacephalic Eye(s): bilateral: Normal Inspection Oral Mucosa: Moist Throat: Normal Neck: Normal ROM, Supple Chest: Symmetrical, No Deformity Cardiovascular: Rhythm Regular Respiratory: Normal Breath Sounds Gastrointestinal/Abdominal: Soft, Tenderness (RUQ) Back: CVA Tenderness Extremity: Normal ROM (x4) Neurological/Psych: Oriented x3, Normal Speech Gait: Steady ED Course And Treatment - Laboratory Results Result Diagrams: 10/17/17 08:04 10/17/17 08:04 O2 Sat by Pulse Oximetry: 100 (RA) Pulse Ox Interpretation: Normal - Other Rad CXR X-Ray: Read By Radiologist Interpretation: Accession No. : [id number]. Patient Name / ID : XAVIER ALARCON / [id number]. Exam Date : 10/14/2017 15:10:15 ( Approved ). Study Comment : Sex / Age : F / 42Y. Creator : Fabiola Perdomo. Dictator : Elbert Blake MD. Dance Master : Furnace Mechanic : Elbert Blake MD. Approver2 : Report Date : 10/14/2017 15:26:48. My Comment : . Chest x-ray single frontal view. History: Chest pain. Comparison: None available. Findings: Mild venous congestion. Mild right hilar prominence. Mild patchy increased markings at the left lung base. Tortuous aorta. Degenerative changes in the spine. Impression: Mild venous congestion. Mild right hilar prominence. Mild patchy increased markings at the left lung base. Tortuous aorta. - CT Scan/US US abdomen Other Rad Studies (CT/US): Read By Radiologist, Radiology Report Reviewed CT/US Interpretation: Accession No. : [id number]. Patient Name / ID : XAVIER ALARCON / [id number]. Exam Date : 10/14/2017 15:20:51 ( Approved ). Study Comment : Sex / Age : F / 42Y. Creator : Elbert Blake MD. Dictator : Elbert Blake MD. Dance Master : Furnace Mechanic : Elbert Blake MD. Approver2 : Report Date : 10/14/2017 16:09:03. My Comment : . Right upper quadrant abdominal ultrasound. History: Abdominal pain. Comparison: Ultrasound dated 09/15/2017. Technique: Real-time sonography was performed through the right upper quadrant of the abdomen. Findings: Liver: 18.7 centimeters in length. Increased echogenicity of the hepatic parenchymal cortex suggestive for fatty infiltration versus hepatic parenchymal disease. Clinical correlation. Gallbladder: Cholelithiasis. Calculi measure up to 1.7 centimeters. Associated sludge. Gallbladder wall thickening measuring up to 9.5 millimeters. Associated gallbladder wall edema. Positive sonographic [place] sign. Common bile duct measures 8.1 millimeters, prominent. Limited visualization of the pancreas. Visualized aorta and IVC are preserved. Right kidney: 14.6 x 5.9 x 6.0 centimeters. No calculi or hydronephrosis. Impression : Cholelithiasis and sludge in the gallbladder. Associated thickened and edematous gallbladder wall measuring up to 9.5 mm. Positive sonographic [place] sign. These findings would be concerning for acute cholecystitis in the appropriate clinical setting. Clinical correlation. Prominent liver measuring 18.7 centimeters in length. Increased echogenicity of the hepatic parenchymal cortex suggestive for fatty infiltration versus hepatic parenchymal disease. Clinical correlation. Prominent common bile duct measuring 8.1 mm. Clinical correlation. Limited visualization of the pancreas. - Physician Consult Information Time Consulting Physician Contacted: 16:56 Physician Contacted: Britt Adams Outcome Of Conversation: Discussed patient with Dr. Adams. Dr. Adams accepts patient to be admitted under her care. Patient will first go to surgical instrument maker to get work done. Medical Decision Making Medical Decision Making: Impression: RUQ abdominal pain. r/o gallbladder disease. Plans: -- blood work -- CXR -- Urine Cx -- UA -- US abdomen -- Pepcid -- IV fluids -- Toradol Reassess: Patient is resting comfortably. Tolerating PO. Patient remains stable. CXR is showing increase patchy infiltrate, patient has no signs of URI, no cough, no fever. Pneumonia is very unlikely. Patient will be admitted under Dr. Adams for further care and evaluation. Case was also discussed with surgical instrument maker to prepare patient for surgery. Disposition - Disposition Disposition: HOSPITALIZED Disposition Time: 17:00 Condition: GOOD - Clinical Impression Clinical Impression: Acute cholecystitis - Scribe Statement The provider has reviewed the documentation as recorded by the Conneribrosemary Peterson Do Provider Attestation: All medical record entries made by the Scribe were at my direction and personally dictated by me. I have reviewed the chart and agree that the record accurately reflects my personal performance of the history, physical exam, medical decision making, and the department course for this patient. I have also personally directed, reviewed, and agree with the discharge instructions and disposition.
--- NOTE | 2017-10-14 15:46 | RAD ---
Chest x-ray single frontal view History: Chest pain. Comparison: None available. Findings: Mild venous congestion. Mild right hilar prominence. Mild patchy increased markings at the left lung base. Tortuous aorta. Degenerative changes in the spine. Impression: Mild venous congestion. Mild right hilar prominence. Mild patchy increased markings at the left lung base. Tortuous aorta.
--- NOTE | 2017-10-14 16:11 | US ---
Right upper quadrant abdominal ultrasound History: Abdominal pain. Comparison: Ultrasound dated 09/15/2017 Technique: Real-time sonography was performed through the right upper quadrant of the abdomen. Findings: Liver: 18.7 centimeters in length. Increased echogenicity of the hepatic parenchymal cortex suggestive for fatty infiltration versus hepatic parenchymal disease. Clinical correlation. Gallbladder: Cholelithiasis. Calculi measure up to 1.7 centimeters. Associated sludge. Gallbladder wall thickening measuring up to 9.5 millimeters. Associated gallbladder wall edema. Positive sonographic [place] sign. Common bile duct measures 8.1 millimeters, prominent. Limited visualization of the pancreas. Visualized aorta and IVC are preserved. Right kidney: 14.6 x 5.9 x 6.0 centimeters. No calculi or hydronephrosis. Impression: Cholelithiasis and sludge in the gallbladder. Associated thickened and edematous gallbladder wall measuring up to 9.5 mm. Positive sonographic [place] sign. These findings would be concerning for acute cholecystitis in the appropriate clinical setting. Clinical correlation. Prominent liver measuring 18.7 centimeters in length. Increased echogenicity of the hepatic parenchymal cortex suggestive for fatty infiltration versus hepatic parenchymal disease. Clinical correlation. Prominent common bile duct measuring 8.1 mm. Clinical correlation. Limited visualization of the pancreas.
[2017-10-14 16:29] LABS: BASO # 0.1 K/uL (0.0-0.2); BASO % 0.4 % (0.0-2.0); EOS % 0.2 % (0.0-4.0); HEMOGLOBIN 8.5 g/dL (11.0-16.0); LYMPH # 2.6 K/uL (1.0-4.3); LYMPH % 14.2 % (20.0-40.0); MEAN CELL VOLUME 61.7 fL (81.0-99.0); MEAN CORPUSCULAR HEMOGLOBIN 18.4 pg (27.0-31.0); MEAN CORPUSCULAR HGB CONC 29.8 g/dL (33.0-37.0); MEAN PLATELET VOLUME 7.3 fL (7.2-11.7); MONO # 0.9 K/uL (0.0-0.8); MONO % 4.9 % (0.0-10.0); NEUT # 14.7 K/uL (1.8-7.0); NEUT % 80.3 % (50.0-75.0); RBC 4.62 Mil/uL (3.80-5.20); RED CELL DISTRIBUTION WIDTH 18.8 % (11.5-14.5)
[2017-10-14 16:36] LABS: ALB/GLOB RATIO 1.2 (1.0-2.1); ALBUMIN 4.3 g/dL (3.5-5.0); ALT/SGPT 20 U/L (9-52); AST/SGOT 21 U/L (14-36); BLOOD UREA NITROGEN 12 mg/dL (7-17); CALCIUM 9.3 mg/dl (8.6-10.4); GFR NON-AFRICAN AMERICAN > 60; LIPASE 72 U/L (23-300)
[2017-10-14 16:37] LABS: WHITE BLOOD COUNT 18.3 K/uL (4.8-10.8)
[2017-10-14] MEDS ORDERED: Piperacillin/Tazobact 3.375 GM in Sodium Chloride 100 ML IVPB ONE (16:57)
[2017-10-14 16:59] LABS: SQUAMOUS EPITHIAL 7 /hpf (0-5); URINE BACTERIA OCC (<OCC); URINE BILIRUBIN NEGATIVE (NEGATIVE); URINE BLOOD NEGATIVE (NEGATIVE); URINE CLARITY Hazy (Clear); URINE COLOR Amber (YELLOW); URINE GLUCOSE (UA) NORMAL (Normal); URINE PROTEIN 1+ mg/dL (NEGATIVE)
[2017-10-14] MEDS ORDERED: Morphine 4 MG/ML VIAL IV ONE (16:59)
[2017-10-14 17:01] LABS: URINE LEUKOCYTE ESTERASE 1+ Leu/uL (Negative)
[2017-10-14] MEDS ORDERED: Morphine 4 MG/ML VIAL ONE (17:22)
[2017-10-14] MEDS ORDERED: Piperacillin/Tazobact 3.375 gm 100 ML IVPB ONE (17:23)
[2017-10-14] MEDS: Sodium Chloride 0.9% 1,000 ML IV SCH (17:30)
[2017-10-14] MEDS: Piperacill/Tazo 3.375gm in Dex 3.375 GM/50 ML BAG IVPB SCH (18:00)
--- NOTE | 2017-10-14 18:01 | CP.PCM.HP ---
History of Present Illness - History of Present Illness History of Present Illness: H&P for Dr. Adams Pt is 42y/o female with PMH of morbid obesity, GERD, sleep apnea, anemia, and cholelithiasis who presented to the ER with RUQ pain that radiates to her back and nausea for 5 days. Patient states that pain is constant and stabbing in nature with no specific aggravating factors. Patient states that she has been unable to eat much since Friday but that it does not make her pain worse. Patient denies any dysuria, hematuria, diarrhea, but hasn't had a bowel movement since Friday, at which time it was normal color and consistency. Denies any fevers, chills. Was admitted one month ago at [facility] for similar symptoms and was found to have cholelithiasis without cholecystitis and was managed conservatively with instructions to follow up with surgeon outpatiently for elective cholecystectomy, but her symptoms returned prior to that follow up appointment. Ultrasound in ER showed gallstones, thickened GB wall, trace pericholecystic fluid, and CBD 8mm PMH: obesity, anemia, cholelithiasis, GERD, sleep apnea, fibroid, ovarian cyst PSH: c-sectionx1 ALL: NKDA Social: smokes 3cig/day, smoking for 24 years. Drinks ETOH occasionally, denies drugs Present on Admission - Present on Admission Any Indicators Present on Admission: No Review of Systems - Review of Systems All systems: reviewed and no additional remarkable complaints except (as per HPI ) Past Patient History - Past Medical History & Family History Past Medical History?: Yes Pertinent Family History: Sister with gallbladder disease and cholecystectomy - Past Social History Smoking Status: Light Smoker < 10 Cigarettes Daily Alcohol: Occasional Drugs: Denies - CARDIAC Hx Cardiac Disorders: No - PULMONARY Hx Respiratory Disorders: Yes Hx Sleep Apnea: Yes (Does not use CPAP) - NEUROLOGICAL Hx Neurological Disorder: No - HEENT Hx HEENT Problems: No - RENAL Hx Chronic Kidney Disease: No - ENDOCRINE/METABOLIC Hx Endocrine Disorders: No - HEMATOLOGICAL/ONCOLOGICAL Hx Anemia: Yes - INTEGUMENTARY Hx Dermatological Problems: No - MUSCULOSKELETAL/RHEUMATOLOGICAL Hx Falls: No - GASTROINTESTINAL Hx Gall Bladder Disease: Yes Hx Gastroesophageal Reflux: Yes - GENITOURINARY/GYNECOLOGICAL Hx Genitourinary Disorders: Yes Other/Comment: Uterine fibroid and ovarian cyst seen on ultrasound 08/2017 - PSYCHIATRIC Hx Substance Use: No - SURGICAL HISTORY Hx Surgeries: Yes Hx Section: Yes (1 at age 27) - ANESTHESIA Hx Anesthesia: Yes Hx Anesthesia Reactions: No Meds Allergies/Adverse Reactions: Allergies Allergy/AdvReac Type Severity Reaction Status Date / Time No Known Allergies Allergy Verified 10/14/17 14:36 Physical Exam - Constitutional Appears: Well, Non-toxic, No Acute Distress - Head Exam Head Exam: ATRAUMATIC, NORMOCEPHALIC - Eye Exam Eye Exam: Normal appearance. absent: Conjunctival injection, Scleral icterus - ENT Exam ENT Exam: Mucous Membranes Moist, Normal Oropharynx - Respiratory Exam Respiratory Exam: NORMAL BREATHING PATTERN. absent: Accessory Muscle Use, Respiratory Distress - Cardiovascular Exam Cardiovascular Exam: Tachycardia, REGULAR RHYTHM - GI/Abdominal Exam GI & Abdominal Exam: Soft, Tenderness (RUQ>epigastrium). absent: Distended, Guarding, Rebound, Rigid Additional comments: positive alvarado's sign - Extremities Exam Extremities exam: Positive for: pedal pulses present. Negative for: calf tenderness, pedal edema - Neurological Exam Neurological exam: Alert, Oriented x3 - Psychiatric Exam Psychiatric exam: Normal Affect, Normal Mood - Skin Skin Exam: Dry, Intact, Normal Color, Warm Results - Vital Signs Recent Vital Signs: Last Vital Signs Temp 98.9 F 10/14/17 14:34 Pulse 99 H 10/14/17 14:34 Resp 16 10/14/17 14:34 BP 129/77 10/14/17 14:34 Pulse Ox 100 10/14/17 17:02 - Labs Result Diagrams: 10/14/17 16:17 10/14/17 16:17 Labs: Laboratory Results - last 24 hr 10/14/17 10/14/17 10/14/17 15:51 16:17 16:17 WBC 18.3 H D RBC 4.62 Hgb 8.5 L Hct 28.5 L MCV 61.7 L MCH 18.4 L MCHC 29.8 L RDW 18.8 H Plt Count 440 H MPV 7.3 Neut % (Auto) 80.3 H Lymph % (Auto) 14.2 L [place] % (Auto) 4.9 Eos % (Auto) 0.2 Baso % (Auto) 0.4 Neut # (Auto) 14.7 H Lymph # (Auto) 2.6 [place] # (Auto) 0.9 H Eos # (Auto) 0.0 Baso # (Auto) 0.1 Differential Comment Sodium 140 Potassium 4.2 Chloride 100 Carbon Dioxide 27 Anion Gap 17 BUN 12 Creatinine 0.7 Est GFR ( Amer) > 60 Est GFR (Non-Af Amer) > 60 Random Glucose 91 Calcium 9.3 Total Bilirubin 0.8 AST 21 ALT 20 Alkaline Phosphatase 98 Total Protein 8.0 Albumin 4.3 Globulin 3.6 Albumin/Globulin Ratio 1.2 Lipase 72 Urine Color [place] Urine Clarity Hazy Urine pH 5.0 Ur Specific [place] 1.026 Urine Protein 1+ H Urine Glucose (UA) Normal Urine Ketones 1+ H Urine Blood Negative Urine Nitrate Negative Urine Bilirubin Negative Urine Urobilinogen 4.0 H Ur Leukocyte Esterase 1+ H Urine WBC (Auto) 10 H Urine RBC (Auto) 3 Ur Squamous Epith Cells 7 H Urine Bacteria Occ H - Imaging and Cardiology US - abdomen Status: Image reviewed by me, Report reviewed by me Assessment & Plan (1) Acute calculous cholecystitis Status: Acute Priority: High (2) Urinary tract infection Status: Acute Priority: Medium (3) Sleep apnea Status: Chronic Priority: Low (4) GERD (gastroesophageal reflux disease) Status: Chronic Priority: Medium (5) Anemia Status: Chronic Priority: Low (6) Nausea Status: Acute Priority: Medium - Assessment and Plan (Free Text) Assessment: 42F with PMH of symptomatic cholelithiasis, anemia, GERD, and sleep apnea current acute cholecystitis and possible UTI Plan: OR in the AM for laparoscopic cholecystectomy, possible open Admit to med/surgery floor Repeat CBC and CMP in the AM Urine culture and test CLD and NPO@MN PRN pain and nausea medication IV Zosyn IV pepcid for GERD Discussed and examined with Dr. Bryan Marcos, PGY2
[2017-10-14] MEDS: Morphine 4 MG/ML VIAL IV PRN (21:59)
[2017-10-15] MEDS: Piperacill/Tazo 3.375gm in Dex 3.375 GM/50 ML BAG IVPB SCH ×4 (00:31→18:30)
[2017-10-15] MEDS: Morphine 4 MG/ML VIAL IV PRN ×3 (01:51→21:25)
[2017-10-15] MEDS: Sodium Chloride 0.9% 1,000 ML IV SCH ×5 (03:30→23:30)
[2017-10-15 07:53] LABS: BASO # 0.1 K/uL (0.0-0.2); BASO % 0.6 % (0.0-2.0); EOS # 0.1 K/uL (0.0-0.7); EOS % 0.9 % (0.0-4.0); HEMOGLOBIN 7.3 g/dL (11.0-16.0); LYMPH # 1.6 K/uL (1.0-4.3); LYMPH % 14.2 % (20.0-40.0); MEAN CELL VOLUME 61.7 fL (81.0-99.0); MEAN CORPUSCULAR HEMOGLOBIN 18.6 pg (27.0-31.0); MEAN CORPUSCULAR HGB CONC 30.1 g/dL (33.0-37.0); MEAN PLATELET VOLUME 6.8 fL (7.2-11.7); MONO # 0.5 K/uL (0.0-0.8); MONO % 4.7 % (0.0-10.0); NEUT # 9.2 K/uL (1.8-7.0); NEUT % 79.6 % (50.0-75.0); RBC 3.95 Mil/uL (3.80-5.20); RED CELL DISTRIBUTION WIDTH 18.6 % (11.5-14.5); WHITE BLOOD COUNT 11.6 K/uL (4.8-10.8)
[2017-10-15 08:09] LABS: INR 1.3
[2017-10-15 08:31] LABS: ALB/GLOB RATIO 1.1 (1.0-2.1); ALBUMIN 3.6 g/dL (3.5-5.0); ALT/SGPT 19 U/L (9-52); AST/SGOT 17 U/L (14-36); BLOOD UREA NITROGEN 8 mg/dL (7-17); CALCIUM 8.4 mg/dl (8.6-10.4); GFR NON-AFRICAN AMERICAN > 60
[2017-10-15] MEDS ORDERED: Midazolam 2 MG/2 ML VIAL ONE (14:28)
[2017-10-15] MEDS ORDERED: Propofol 10 mg/ml Inj (20 ML) ONE (14:28)
[2017-10-15] MEDS ORDERED: Rocuronium 10 mg/ml (5 ml) ONE (14:43)
[2017-10-15] MEDS ORDERED: Succinylcholine Chloride 20 mg/ml Syr (5 ml) IV ONE (14:43)
[2017-10-15] MEDS ORDERED: Neostigmine Methylsulfate 3mg/3ml Syringe IV ONE (16:38)
--- NOTE | 2017-10-15 17:10 | PCM.SURG1 ---
Surgeon's Initial Post Op Note - Surgeon's Notes Surgeon: Dr. Adams Farm Operations Technical Director: Dr. Toledo PGY-4, Dr. Cota PGY-3, Kasey Hallmael [facility] [place] Type of Anesthesia: General Endo Pre-Operative Diagnosis: Acute cholecystitis Operative Findings: severely inflammed hydrops gallbladder, 3 large gallstones Post-Operative Diagnosis: Acute on chronic cholecystitis Operation Performed: Laparoscopic cholecystectomy Specimen/Specimens Removed: gallbladder Estimated Blood Loss: EBL {In ML}: 100 Blood Products Given: PRBC (1 PRBC continued from floor) Drains Used: Sudhakar Post-Op Condition: Fair Date of Surgery/Procedure: 10/15/17 Time of Surgery/Procedure: 14:00
[2017-10-15] MEDS: HYDROmorphone 0.5 mg/0.5 ml ISec IVP PRN ×2 (17:15→17:30)
[2017-10-15 18:51] VITALS: RESP 20
[2017-10-15 20:42] LABS: HEMOGLOBIN 8.6 g/dL (11.0-16.0)
[2017-10-16] MEDS: Piperacill/Tazo 3.375gm in Dex 3.375 GM/50 ML BAG IVPB SCH ×4 (00:22→17:11)
[2017-10-16] MEDS: Morphine 4 MG/ML VIAL IV PRN ×2 (00:30→04:50)
[2017-10-16 07:55] LABS: BASO % 0.3 % (0.0-2.0); EOS % 0.2 % (0.0-4.0); HEMOGLOBIN 7.8 g/dL (11.0-16.0); LYMPH # 1.3 K/uL (1.0-4.3); LYMPH % 10.8 % (20.0-40.0); MEAN CORPUSCULAR HEMOGLOBIN 19.8 pg (27.0-31.0); MEAN CORPUSCULAR HGB CONC 30.8 g/dL (33.0-37.0); MEAN PLATELET VOLUME 7.3 fL (7.2-11.7); MONO # 0.7 K/uL (0.0-0.8); MONO % 5.9 % (0.0-10.0); NEUT # 9.9 K/uL (1.8-7.0); NEUT % 82.8 % (50.0-75.0); RBC 3.94 Mil/uL (3.80-5.20); RED CELL DISTRIBUTION WIDTH 19.7 % (11.5-14.5)
--- NOTE | 2017-10-16 07:56 | CP.PCM.PN ---
Subjective - Date & Time of Evaluation Date of Evaluation: 10/16/17 Time of Evaluation: 07:00 - Subjective Subjective: GENERAL SURGERY PROGRESS NOTE FOR DR. MAJOR Patient seen and examined at bedside. She is ambulating and voiding. Denies flatus since surgery. Reports some pain in the RUQ area. Objective - Vital Signs/Intake and Output Vital Signs (last 24 hours): Temp Pulse Resp BP Pulse Ox 98.3 F 91 H 20 104/69 97 10/15/17 23:20 10/15/17 23:20 10/15/17 23:20 10/15/17 23:20 10/15/17 23:20 Intake and Output: 10/16/17 10/16/17 06:59 18:59 Intake Total 2049 Output Total 70 Balance 1979 - Medications Medications: Current Medications Enoxaparin Sodium (Lovenox) 40 mg SC DAILY [facility] Famotidine (Pepcid) 20 mg IVP DAILY [facility] Last Admin: 10/15/17 10:17 Dose: 20 mg Piperacillin Sod/Tazobactam Sod (Zosyn 3.375 Gm Iv Premix) 3.375 gm in 50 mls @ 100 mls/hr IVPB Q6H [facility] PRN Reason: Protocol Last Admin: 10/16/17 05:00 Dose: 100 mls/hr Sodium Chloride (Sodium Chloride 0.9%) 1,000 mls @ 100 mls/hr IV .Q10H [facility] Last Admin: 10/15/17 23:30 Dose: Not Given Ondansetron HCl (Zofran Inj) 4 mg IVP ONCE PRN PRN Reason: Nausea/Vomiting Ondansetron HCl (Zofran Inj) 4 mg IVP Q4 PRN PRN Reason: Nausea/Vomiting Oxycodone/Acetaminophen (Percocet 5/325 Mg Tab) 1 tab PO Q4H PRN PRN Reason: Pain, moderate (4-7) Stop: 10/19/17 07:18 Pneumococcal Polyvalent Vaccine (Pneumovax 23 Vaccine) 0.5 ml IM .ONCE ONE Stop: 10/16/17 10:01 - Labs Labs: 10/15/17 20:33 10/15/17 07:38 PT 14.0 SECONDS (9.7-12.2) H 10/15/17 07:38 INR 1.3 10/15/17 07:38 APTT 31 SECONDS (21-34) 10/15/17 07:38 - Constitutional Appears: Non-toxic, No Acute Distress - Head Exam Head Exam: ATRAUMATIC, NORMAL INSPECTION - Eye Exam Eye Exam: EOMI, Normal appearance - Respiratory Exam Respiratory Exam: NORMAL BREATHING PATTERN. absent: Respiratory Distress - Cardiovascular Exam Cardiovascular Exam: +S1, +S2 - GI/Abdominal Exam GI & Abdominal Exam: Soft, Tenderness (mild tenderness in RUQ, appropriate in post operative period). absent: Distended, Firm, Guarding, Rigid, Rebound Additional comments: Dressings clean/dry/intact - Neurological Exam Neurological Exam: Alert, Awake, Oriented x3 - Psychiatric Exam Psychiatric exam: Normal Affect, Normal Mood - Skin Skin Exam: Normal Color, Warm Assessment and Plan - Assessment and Plan (Free Text) Assessment: 42yo F with acute on chronic cholecystitis s/p lap cholecystectomy POD#1 - Will FU AM labs - DVT PPx - Continue IV Abx - Encouraged ambulation and IS use - Discussed plan with Dr. Bryan Toledo PGY-4
[2017-10-16 07:59] LABS: MEAN CELL VOLUME 64.2 fL (81.0-99.0)
--- NOTE | 2017-10-16 07:59 | OP ---
Copied To: Britt Adams MD Attending MD: Britt Adams MD PROCEDURE DATE: 10/14/2017 SURGEON: Britt Adams MD ASSISTANTS: Veronique Toledo DO and Deandre Cota DO. ANESTHESIA: General. ANESTHESIOLOGIST: Dr. Sue. PREOPERATIVE DIAGNOSIS: Acute cholecystitis. POSTOPERATIVE DIAGNOSIS: Acute cholecystitis. PROCEDURE: Laparoscopic cholecystectomy. DESCRIPTION OF OPERATION: With the patient in the supine position, under adequate general anesthesia, the abdomen was prepped and draped in the usual sterile manner. Veress needle puncture was performed at the umbilicus with insufflation to 15 cm water pressure of CO2 and a 10 mm laparoscopic trocar was placed via a supraumbilical incision. Under direct vision, additional trocars were placed in the epigastrium and right costal margin. The gallbladder was visualized. It was noted to be acutely inflamed and tensely distended. The gallbladder was aspirated and approximately 60 mL of clear white bile followed by approximately 20 mL of purulent bile. The gallbladder fundus was grasped and elevated. The patient was morbidly obese, and an additional 5 mm trocar was placed in the left upper quadrant to allow placement of a fan retractor to provide downward retraction on the stomach and transverse colon to improve visualization. There was noted to be a stone impacted in the fundus of the gallbladder. The fundus was grasped just above the stone and retracted laterally. There was acute inflammatory reaction around the fundus of the gallbladder, and a white drainage with the appearance of pus was noted as well at the defect from the graspers. The fundus was dissected, and the cystic artery was identified and cleared. The cystic artery was triply clipped and divided. The cystic duct was identified. However, due to inflammation and inability to thoroughly elevate the fatty liver and the patient's body habitus, the cystic duct was not able to be safely dissected and cleared. Decision was made to continue to the procedure in the top down fashion, and the peritoneal covering over the gallbladder was incised with the cautery, and the gallbladder was dissected downwards from the liver. Liver was gently elevated using the fan retractor as the gallbladder was freed from the liver bed down to the area of the infundibulum. As the infundibulum was reached, the gallbladder was opened and three large stones were removed. At this point, an EndoGIA stapler was then placed across the infundibulum of the gallbladder and the gallbladder was transected. The gallbladder was placed in a specimen retrieval bag and removed via the epigastric port site. The right upper quadrant was irrigated and suctioned. A 19 Sudhakar drain was positioned in the subhepatic phase and brought out through one of the 5 mm lateral port site. The pneumoperitoneum was released and the trocars were removed. The umbilical port site was closed with a fascial suture of 0 Vicryl. All incisions were closed with 4-0 Monocryl subcuticular sutures and Steri-Strips. Dry sterile dressings were applied. The patient tolerated the procedure well and transferred to the recovery room in stable condition. Estimated blood loss for the procedure was 100 mL. Britt Adams MD
[2017-10-16 08:26] LABS: ALB/GLOB RATIO 1.2 (1.0-2.1); ALBUMIN 3.4 g/dL (3.5-5.0); ALT/SGPT 45 U/L (9-52); AST/SGOT 45 U/L (14-36); BLOOD UREA NITROGEN 7 mg/dL (7-17); CALCIUM 8.1 mg/dl (8.6-10.4); GFR NON-AFRICAN AMERICAN > 60
[2017-10-16] MEDS: Oxycodone/Acetaminophen 5/325 mg Tab PO PRN ×3 (08:49→20:05)
[2017-10-16] MEDS: Enoxaparin 40 mg Syringe SC SCH (09:48)
[2017-10-16] MEDS: Sodium Chloride 0.9% 1,000 ML IV SCH ×2 (09:49→20:09)
[2017-10-16] MEDS ORDERED: Pneumococcal 23-Valent Vaccine IM ONE (10:00)
[2017-10-16] MEDS ORDERED: Potassium Chloride 20 mEq ER Tab PO ONE (13:15)
[2017-10-17] MEDS: Piperacill/Tazo 3.375gm in Dex 3.375 GM/50 ML BAG IVPB SCH ×4 (00:19→17:23)
[2017-10-17] MEDS: Oxycodone/Acetaminophen 5/325 mg Tab PO PRN ×4 (00:29→19:34)
[2017-10-17] MEDS: Sodium Chloride 0.9% 1,000 ML IV SCH ×3 (05:17→17:24)
[2017-10-17 08:31] LABS: BASO # 0.1 K/uL (0.0-0.2); BASO % 0.5 % (0.0-2.0); EOS # 0.1 K/uL (0.0-0.7); EOS % 1.1 % (0.0-4.0); HEMOGLOBIN 8.3 g/dL (11.0-16.0); LYMPH # 1.7 K/uL (1.0-4.3); LYMPH % 17.2 % (20.0-40.0); MEAN CELL VOLUME 64.6 fL (81.0-99.0); MEAN CORPUSCULAR HEMOGLOBIN 19.9 pg (27.0-31.0); MEAN CORPUSCULAR HGB CONC 30.8 g/dL (33.0-37.0); MEAN PLATELET VOLUME 7.1 fL (7.2-11.7); MONO # 0.5 K/uL (0.0-0.8); MONO % 4.9 % (0.0-10.0); NEUT # 7.6 K/uL (1.8-7.0); NEUT % 76.3 % (50.0-75.0); NRBC % 0.1 % (0.0-2.0); RBC 4.15 Mil/uL (3.80-5.20); RED CELL DISTRIBUTION WIDTH 19.8 % (11.5-14.5)
[2017-10-17 09:23] LABS: ALBUMIN 3.4 g/dL (3.5-5.0); ALT/SGPT 30 U/L (9-52); AST/SGOT 22 U/L (14-36); BLOOD UREA NITROGEN 5 mg/dL (7-17); CALCIUM 8.3 mg/dl (8.6-10.4); GFR NON-AFRICAN AMERICAN > 60
[2017-10-17] MEDS: Enoxaparin 40 mg Syringe SC SCH (10:09)
--- NOTE | 2017-10-17 11:14 | CP.PCM.PN ---
Subjective - Date & Time of Evaluation Date of Evaluation: 10/17/17 Time of Evaluation: 07:00 - Subjective Subjective: GENERAL SURGERY PROGRESS NOTE FOR DR. MAJOR Patient seen and examined at bedside. She is tolerating her heart healthy diet, denies vomiting. She is ambulating. Still reports abdominal pain. Objective - Vital Signs/Intake and Output Vital Signs (last 24 hours): Temp Pulse Resp BP Pulse Ox 98.7 F 76 20 100/60 96 10/17/17 07:21 10/17/17 07:21 10/17/17 07:21 10/17/17 07:21 10/17/17 07:21 Intake and Output: 10/17/17 10/17/17 06:59 18:59 Intake Total 1780 Output Total 50 Balance 1730 - Medications Medications: Current Medications Enoxaparin Sodium (Lovenox) 40 mg SC DAILY [facility] Last Admin: 10/17/17 10:09 Dose: 40 mg Famotidine (Pepcid) 20 mg IVP DAILY [facility] Last Admin: 10/17/17 09:57 Dose: 20 mg Piperacillin Sod/Tazobactam Sod (Zosyn 3.375 Gm Iv Premix) 3.375 gm in 50 mls @ 100 mls/hr IVPB Q6H [facility] PRN Reason: Protocol Last Admin: 10/17/17 05:12 Dose: 100 mls/hr Sodium Chloride (Sodium Chloride 0.9%) 1,000 mls @ 100 mls/hr IV .Q10H [facility] Last Admin: 10/17/17 05:17 Dose: 100 mls/hr Ondansetron HCl (Zofran Inj) 4 mg IVP ONCE PRN PRN Reason: Nausea/Vomiting Ondansetron HCl (Zofran Inj) 4 mg IVP Q4 PRN PRN Reason: Nausea/Vomiting Oxycodone/Acetaminophen (Percocet 5/325 Mg Tab) 1 tab PO Q4H PRN PRN Reason: Pain, moderate (4-7) Stop: 10/19/17 07:18 Last Admin: 10/17/17 10:08 Dose: 1 tab - Labs Labs: 10/17/17 08:04 10/17/17 08:04 PT 14.0 SECONDS (9.7-12.2) H 10/15/17 07:38 INR 1.3 10/15/17 07:38 APTT 31 SECONDS (21-34) 10/15/17 07:38
--- NOTE | 2017-10-17 11:45 | CP.PCM.PN ---
Subjective - Date & Time of Evaluation Date of Evaluation: 10/17/17 Time of Evaluation: 07:00 - Subjective Subjective: GENERAL SURGERY PROGRESS NOTE FOR DR. MAJOR Patient seen and examined at bedside. She isn't eating much because she doesn't have an appetite. States she had some nausea but no vomiting. She has some abdominal pain at the laparoscopic incision sites. Sudhakar drain removed today. Pt states that she doesn't a ride home today but will be able to get a ride home tomorrow. Objective - Vital Signs/Intake and Output Vital Signs (last 24 hours): Temp Pulse Resp BP Pulse Ox 98.7 F 76 20 100/60 96 10/17/17 07:21 10/17/17 07:21 10/17/17 07:21 10/17/17 07:21 10/17/17 07:21 Intake and Output: 10/17/17 10/17/17 06:59 18:59 Intake Total 1780 Output Total 50 Balance 1730 - Medications Medications: Current Medications Enoxaparin Sodium (Lovenox) 40 mg SC DAILY [facility] Last Admin: 10/17/17 10:09 Dose: 40 mg Famotidine (Pepcid) 20 mg IVP DAILY [facility] Last Admin: 10/17/17 09:57 Dose: 20 mg Piperacillin Sod/Tazobactam Sod (Zosyn 3.375 Gm Iv Premix) 3.375 gm in 50 mls @ 100 mls/hr IVPB Q6H [facility] PRN Reason: Protocol Last Admin: 10/17/17 05:12 Dose: 100 mls/hr Sodium Chloride (Sodium Chloride 0.9%) 1,000 mls @ 100 mls/hr IV .Q10H [facility] Last Admin: 10/17/17 05:17 Dose: 100 mls/hr Ondansetron HCl (Zofran Inj) 4 mg IVP ONCE PRN PRN Reason: Nausea/Vomiting Ondansetron HCl (Zofran Inj) 4 mg IVP Q4 PRN PRN Reason: Nausea/Vomiting Oxycodone/Acetaminophen (Percocet 5/325 Mg Tab) 1 tab PO Q4H PRN PRN Reason: Pain, moderate (4-7) Stop: 10/19/17 07:18 Last Admin: 10/17/17 10:08 Dose: 1 tab - Labs Labs: 10/17/17 08:04 10/17/17 08:04 PT 14.0 SECONDS (9.7-12.2) H 10/15/17 07:38 INR 1.3 10/15/17 07:38 APTT 31 SECONDS (21-34) 10/15/17 07:38 - Constitutional Appears: Non-toxic, No Acute Distress - Head Exam Head Exam: ATRAUMATIC, NORMAL INSPECTION - Eye Exam Eye Exam: EOMI, Normal appearance - Respiratory Exam Respiratory Exam: NORMAL BREATHING PATTERN. absent: Respiratory Distress - Cardiovascular Exam Cardiovascular Exam: +S1, +S2 - GI/Abdominal Exam GI & Abdominal Exam: Soft, Tenderness (mild tenderness at laparoscopic incision sites, normal in post operative period). absent: Distended, Firm, Guarding, Rigid, Rebound Additional comments: Sudhakar drain in place with serosanguinous drainage - Neurological Exam Neurological Exam: Alert, Awake, Oriented x3 - Psychiatric Exam Psychiatric exam: Normal Affect, Normal Mood - Skin Skin Exam: Dry, Normal Color, Warm Assessment and Plan - Assessment and Plan (Free Text) Assessment: 42yo F with acute on chronic cholecystitis s/p lap cholecystectomy POD#2 - DVT PPx - Continue IV Abx - Encouraged ambulation and IS use - Discussed plan with Dr. Bryan Toledo PGY-4
[2017-10-17 16:10] VITALS: BP 123/84; PULSE 84; TEMP 98.8; O2SAT 94
== END 2017-10-17 21:40 | disposition home or self-care (01) | DRG 493 ==
LOC: C.ER 14:14 → C.9E 17:00 → C.3T 17:47
PROVIDERS: ADMIT Specialist; ATTEND Specialist
PROC: 0FT44ZZ Resection of Gallbladder, Percutaneous Endoscopic Approach (ICD-10-PCS; principal; 2017-10-15 12:00)
DX: K80.00 Calculus of gallbladder with acute cholecystitis without obstruction (principal); N39.0 Urinary tract infection, site not specified; D64.9 Anemia, unspecified; G47.30 Sleep apnea, unspecified; Z87.891 Personal history of nicotine dependence; Z68.43 Body mass index [BMI] 50.0-59.9, adult; E66.01 Morbid (severe) obesity due to excess calories